=== PATIENT | male | born 1995 | race Caucasian/White ===

== ENCOUNTER 2017-09-02 02:03 | Emergency (ER) | payer OTHER ==
[~2017-09-02] VITALS: Ht 165.1 cm; Wt 67.6 kg
[2017-09-02 02:15] VITALS: Ht 165.1 cm; Wt 67.6 kg
[2017-09-02 05:08] VITALS: BP 143/82
[2017-09-04 05:28] LABS: RAPID PLASMA REAGIN Reactive (Non Reactive)
== END 2017-09-02 05:08 | disposition home or self-care (01) ==
LOC: ED 02:03
PROVIDERS: Emergency Medicine
DX: A64 Unspecified sexually transmitted disease (principal)
CPT/HCPCS: 87491; 87591; J0696

== ENCOUNTER 2018-09-02 01:02 | Emergency (ER) | payer SELFPAY ==
[~2018-09-02] VITALS: Ht 165.1 cm; Wt 59.0 kg
[2018-09-02 01:11] VITALS: Ht 165.1 cm; Wt 59.0 kg
[2018-09-02 02:18] LABS: AMPHETAMINE QUAL UR NONE DETECTED (See below)
[2018-09-02 02:29] VITALS: BP 132/72
== END 2018-09-02 02:29 | disposition home or self-care (01) ==
LOC: ED 01:02
PROVIDERS: Emergency Medicine
DX: R00.2 Palpitations (principal); R07.89 Other chest pain

== ENCOUNTER 2018-09-06 23:38 | Emergency (ER) | payer SELFPAY ==
[~2018-09-06] VITALS: Ht 157.5 cm; Wt 68.5 kg
[2018-09-06 23:56] VITALS: Ht 157.5 cm; Wt 68.5 kg
[2018-09-07 02:22] VITALS: BP 137/86
== END 2018-09-07 02:22 | disposition left against medical advice (07) ==
LOC: ED 23:38
DX: Z53.21 Procedure and treatment not carried out due to patient leaving prior to being seen by health care provider (principal)

== ENCOUNTER 2018-09-07 08:18 | Emergency (ER) | payer MEDICAID ==
[~2018-09-07] VITALS: Ht 165.1 cm; Wt 67.8 kg
[2018-09-07 08:25] VITALS: Ht 165.1 cm; Wt 67.8 kg
[2018-09-07 09:11] LABS: BASOPHIL % 0.3 % (0-2); PLATELET COUNT 261 x10^3mcL (130-400); RED CELL DISTRIBUTION WIDTH 13.5 % (11.5-14.5)
[2018-09-07 09:33] LABS: T3 TOTAL 1.28 ng/mL
[2018-09-07 09:36] LABS: AMPHETAMINE QUAL UR NONE DETECTED (See below)
[2018-09-07 10:07] LABS: CALCIUM 8.7 mg/dL (8.5-10.1); CARBON DIOXIDE 27.6 mmol/L (21-32); CHLORIDE SERUM 101 mmol/L (98-107); CREATININE SERUM 0.8 mg/dL (0.7-1.3); GFR1 > 60 mL/min; GLUCOSE SERUM 102 mg/dL (74-106); POTASSIUM SERUM 3.4 mmol/L (3.5-5.1); SODIUM SERUM 138 mmol/L (136-145)
[2018-09-07 10:12] LABS: ALBUMIN 4.2 g/dL (3.4-5.0); ALKALINE PHOSPHATASE 119 U/L (46-116); ALT/SGPT 145 U/L (16-63); AST/SGOT 71 U/L (15-37); BILIRUBIN TOTAL 0.9 mg/dL (0.20-1.00); TOTAL PROTEIN, SERUM 8.4 g/dL (6.4-8.2)
[2018-09-07 10:22] LABS: FREE T4 0.86 ng/dL (0.76-1.46); FREE THYROXINE INDEX 2.3 ug/dL (1.4-4.5); T4(THYROXINE) 6.7 ug/dL (4.7-13.3)
[2018-09-07 10:46] VITALS: BP 149/84
== END 2018-09-07 10:45 | disposition home or self-care (01) ==
LOC: ED 08:18
PROVIDERS: Specialist
DX: F41.9 Anxiety disorder, unspecified (principal); F10.20 Alcohol dependence, uncomplicated; Y90.0 Blood alcohol level of less than 20 mg/100 ml
CPT/HCPCS: 36415; 84439; G0480

== ENCOUNTER 2018-12-16 09:23 | Emergency (ER) | payer SELFPAY ==
[~2018-12-16] VITALS: Ht 152.4 cm; Wt 65.8 kg
[2018-12-16 09:40] VITALS: BP 163/96; Ht 152.4 cm; Wt 65.8 kg
[2018-12-16 11:02] LABS: BASOPHIL % 0.2 % (0-2); PLATELET COUNT 307 x10^3mcL (130-400); RED CELL DISTRIBUTION WIDTH 13.2 % (11.5-14.5)
[2018-12-16 11:15] LABS: CALCIUM 9.6 mg/dL (8.5-10.1); CARBON DIOXIDE 23.7 mmol/L (21-32); CHLORIDE SERUM 99 mmol/L (98-107); CREATININE SERUM 0.7 mg/dL (0.7-1.3); GFR1 > 60 mL/min; GLUCOSE SERUM 94 mg/dL (74-106); POTASSIUM SERUM 3.5 mmol/L (3.5-5.1); SODIUM SERUM 138 mmol/L (136-145)
[2018-12-16 11:20] LABS: ALBUMIN 4.5 g/dL (3.4-5.0); ALKALINE PHOSPHATASE 104 U/L (46-116); ALT/SGPT 121 U/L (16-63); AST/SGOT 68 U/L (15-37); BILIRUBIN TOTAL 1.17 mg/dL (0.20-1.00)
[2018-12-16 11:32] LABS: TOTAL PROTEIN, SERUM 8.8 g/dL (6.4-8.2)
[2018-12-17 05:14] LABS: RAPID PLASMA REAGIN Reactive (Non Reactive)
== END 2018-12-16 12:15 | disposition home or self-care (01) ==
LOC: ED 09:23
PROVIDERS: Emergency Medicine
DX: R21 Rash and other nonspecific skin eruption (principal)
CPT/HCPCS: 36415